=== PATIENT | male | born 1985 | race American Indian/Alaskan Native ===

== ENCOUNTER 2020-11-01 10:02 | Emergency (ER) | payer SELFPAY ==
[2020-11-01 10:21] VITALS: BP 144/94
--- NOTE | 2020-11-01 10:42 | Emergency Department Report ---
ED General Adult HPI - General Chief complaint: Abdominal Pain Stated complaint: STOMACH PAIN Time Seen by Provider: 11/01/20 10:36 Source: patient Mode of arrival: Ambulatory Limitations: No Limitations - History of Present Illness Initial comments: Patient is a 34-year-old male who presents emergency room with complaints of upper abdominal discomfort that exacerbated over the last 2 days. He states that it is worse at night and worse after eating. He states he does have a history of GERD but is not currently on any medications. He states it feels like a burning sensation and he has increased belching. He states that he ate a spicy homemade sauce and that he drank some alcohol socially and he believes that is what set off his symptoms 2 days ago. He denies any nausea, vomiting, diarrhea, fever, hematochezia, hematemesis, melena, urinary symptoms, pain or swelling in the testicles. He denies any medication allergies. Severity scale (0 -10): 8 - Related Data Previous Rx's Medication Instructions Recorded Last Taken Type Famotidine [Pepcid] 40 mg PO QHS #30 tablet 11/01/20 Unknown Rx Simethicone [Gas Relief] 125 mg PO Q6HR PRN #1 bottle 11/01/20 Unknown Rx Sucralfate [Carafate] 1 gm PO ACHS 7 Days #21 tablet 11/01/20 Unknown Rx ED Review of Systems ROS: Stated complaint: STOMACH PAIN Other details as noted in HPI Comment: All other systems reviewed and negative ED Past Medical Hx - Past Medical History Previous Medical History?: No - Surgical History Past Surgical History?: No - Medications Home Medications: Home Medications Medication Instructions Recorded Confirmed Last Taken Type Famotidine [Pepcid] 40 mg PO QHS #30 tablet 11/01/20 Unknown Rx Simethicone [Gas Relief] 125 mg PO Q6HR PRN #1 bottle 11/01/20 Unknown Rx Sucralfate [Carafate] 1 gm PO ACHS 7 Days #21 tablet 11/01/20 Unknown Rx ED Physical Exam - General Limitations: No Limitations General appearance: alert, in no apparent distress - Head Head exam: Present: atraumatic, normocephalic - Eye Eye exam: Present: normal appearance - ENT ENT exam: Present: mucous membranes moist - Respiratory Respiratory exam: Present: normal lung sounds bilaterally. Absent: respiratory distress, wheezes, rales, rhonchi, stridor, chest wall tenderness, accessory muscle use, decreased breath sounds, prolonged expiratory - Cardiovascular Cardiovascular Exam: Present: regular rate, normal rhythm, normal heart sounds. Absent: systolic murmur, diastolic murmur, rubs, gallop - GI/Abdominal GI/Abdominal exam: Present: soft, normal bowel sounds. Absent: distended, tenderness, guarding, rebound, rigid - Neurological Exam Neurological exam: Present: alert, oriented X3 - Psychiatric Psychiatric exam: Present: normal affect, normal mood - Skin Skin exam: Present: warm, dry, intact ED Course Vital Signs 11/01/20 10:20 Temperature 98.2 F Pulse Rate 85 Respiratory 18 Rate Blood Pressure 144/94 [Right] O2 Sat by Pulse 99 Oximetry ED Medical Decision Making - Medical Decision Making Patient is a 34-year-old male who presents emergency room with complaints of upper abdominal discomfort that exacerbated over the last 2 days. He states that it is worse at night and worse after eating. He states he does have a history of GERD but is not currently on any medications. He states it feels like a burning sensation and he has increased belching. He states that he ate a spicy homemade sauce and that he drank some alcohol socially and he believes that is what set off his symptoms 2 days ago. He denies any nausea, vomiting, diarrhea, fever, hematochezia, hematemesis, melena, urinary symptoms, pain or swelling in the testicles. He denies any medication allergies. VSS. No abdominal tenderness on exam, no guarding, no rebound, no rigidity, normal bowel sounds, no peritoneal signs, negative Hinds sign, negative McBurney's point tenderness, negative Hall Dawson's and [place] sign. Symptoms appear most consistent with GERD versus PUD versus gastritis. Patient is tolerating p.o. intake without difficulty. He has no obstructive signs or symptoms. Do not suspect acute emergent intra abdominal pathology at this time. Patient given prescription for Pepcid, Carafate, simethicone. Advised patient Please take medication as prescribed. Increase your water intake. Follow-up with your primary care doctor. Follow-up with a GI doctor. Please follow the diet for acid reflux. Return to emergency room immediately for any new or worsening symptoms including but not limited to worsening pain, vomiting, constant diarrhea, fever, blood in the stool, unable to tolerate by mouth intake, unable to have a bowel movement or pass gas, etc. Critical care attestation.: If time is entered above; I have spent that time in minutes in the direct care of this critically ill patient, excluding procedure time. ED Disposition Clinical Impression: Upper abdominal pain Disposition: DC-01 TO HOME OR SELFCARE Is pt being admited?: No Does the pt Need Aspirin: No Condition: Stable Instructions: Gastritis, Adult, Food Choices for Gastroesophageal Reflux Disease, Adult, Gastroesophageal Reflux Disease, Adult Additional Instructions: Please take medication as prescribed. Increase your water intake. Follow-up with your primary care doctor. Follow-up with a GI doctor. Please follow the diet for acid reflux. Return to emergency room immediately for any new or worsening symptoms including but not limited to worsening pain, vomiting, constant diarrhea, fever, blood in the stool, unable to tolerate by mouth intake, unable to have a bowel movement or pass gas, etc. Prescriptions: Famotidine [Pepcid] 40 mg PO QHS #30 tablet Sucralfate [Carafate] 1 gm PO ACHS 7 Days #21 tablet Simethicone [Gas Relief] 125 mg PO Q6HR PRN #1 bottle PRN Reason: gas Referrals: BETSEY WINCHESTER MD [Staff Physician] - 3-5 Days [facility] [Provider Group] - 3-5 Days [facility] [Outside] - 3-5 Days [facility] [Outside] - 3-5 Days [facility] [Provider Group] - 3-5 Days PRIMARY MD ELAINE [Primary Care Provider] - 3-5 Days Time of Disposition: 10:39 Print Language: SLOVENIAN
== END 2020-11-01 10:51 | disposition home or self-care (01) ==
LOC: ED 10:02
DX: R10.10 Upper abdominal pain, unspecified (principal); Z79.899 Other long term (current) drug therapy
CPT/HCPCS: 99282

== ENCOUNTER 2021-07-27 11:56 | Emergency (ER) | payer BC ==
--- NOTE | 2021-07-27 12:24 | Emergency Department Report ---
ED Lower Extremity HPI - General Stated Complaint: LT KNEE INJURY Time Seen by Provider: 07/27/21 12:23 Source: patient Mode of arrival: Ambulatory Limitations: No Limitations - History of Present Illness Initial Comments: 35 yo comes to ER p standing today and rotating knee "funny." He felt a pop and now has l knee pain Ambulatory to ER no effusion distal limb exam wnl neurovasc intact. MD Complaint: knee injury -: Sudden, hour(s) Injury: Knee: Left Type of Injury: other Place: home Severity: mild Severity scale (0 -10): 3 Improves With: nothing Worsens With: weight bearing Associated Symptoms: snap/pop sensation - Related Data Previous Rx's Medication Instructions Recorded Last Taken Type Famotidine [Pepcid] 40 mg PO QHS #30 tablet 11/01/20 Unknown Rx Simethicone [Gas Relief] 125 mg PO Q6HR PRN #1 bottle 11/01/20 Unknown Rx Sucralfate [Carafate] 1 gm PO ACHS 7 Days #21 tablet 11/01/20 Unknown Rx Allergies Allergy/AdvReac Type Severity Reaction Status Date / Time No Known Allergies Allergy Verified 07/27/21 12:21 ED Review of Systems ROS: Stated complaint: LT KNEE INJURY Other details as noted in HPI Comment: All other systems reviewed and negative ED Past Medical Hx - Past Medical History Previous Medical History?: No - Surgical History Past Surgical History?: No - Family History Family history: no significant - Social History Smoking Status: Never Smoker Substance Use Type: None - Medications Home Medications: Home Medications Medication Instructions Recorded Confirmed Last Taken Type Famotidine [Pepcid] 40 mg PO QHS #30 tablet 11/01/20 Unknown Rx Simethicone [Gas Relief] 125 mg PO Q6HR PRN #1 bottle 11/01/20 Unknown Rx Sucralfate [Carafate] 1 gm PO ACHS 7 Days #21 tablet 11/01/20 Unknown Rx ED Physical Exam - General General appearance: alert, in no apparent distress - Head Head exam: Present: atraumatic, normocephalic - Eye Eye exam: Present: normal appearance - ENT ENT exam: Present: mucous membranes moist - Neck Neck exam: Present: normal inspection - Respiratory Respiratory exam: Present: normal lung sounds bilaterally. Absent: respiratory distress - Cardiovascular Cardiovascular Exam: Present: regular rate, normal rhythm. Absent: systolic murmur, diastolic murmur, rubs, gallop - GI/Abdominal GI/Abdominal exam: Present: soft, normal bowel sounds - Rectal Rectal exam: Present: deferred - Extremities Exam Extremities exam: Present: normal inspection - Back Exam Back exam: Present: normal inspection - Neurological Exam Neurological exam: Present: alert, oriented X3 - Psychiatric Psychiatric exam: Present: normal affect, normal mood - Skin Skin exam: Present: warm, dry, intact, normal color. Absent: rash ED Course Vital Signs 07/27/21 07/27/21 07/27/21 12:22 12:29 12:30 Temperature 98 F 98.1 F Pulse Rate 75 81 Respiratory 16 14 Rate Blood Pressure Blood Pressure 158/102 135/86 [Left] O2 Sat by Pulse 96 98 98 Oximetry 07/27/21 12:31 Temperature 98.1 F Pulse Rate 81 Respiratory 14 Rate Blood Pressure 135/86 Blood Pressure [Left] O2 Sat by Pulse 98 Oximetry ED Lower Extremity MDM - Radiology Data Radiology results: report reviewed, image reviewed nap - Medical Decision Making xray noted Vital Signs 07/27/21 07/27/21 07/27/21 12:22 12:29 12:30 Temperature 98 F 98.1 F Pulse Rate 75 81 Respiratory 16 14 Rate Blood Pressure Blood Pressure 158/102 135/86 [Left] O2 Sat by Pulse 96 98 98 Oximetry 07/27/21 12:31 Temperature 98.1 F Pulse Rate 81 Respiratory 14 Rate Blood Pressure 135/86 Blood Pressure [Left] O2 Sat by Pulse 98 Oximetry educated on RICE treatment sadi/crutches for comfort dc home with dc plan of care including follow up with ortho/RICE and pain management. Pt verbalizes understanding of dc plan of care - Differential Diagnosis ro fx Critical care attestation.: If time is entered above; I have spent that time in minutes in the direct care of this critically ill patient, excluding procedure time. ED Disposition Clinical Impression: Knee pain Disposition: 01 HOME / SELF CARE / HOMELESS Is pt being admited?: No Does the pt Need Aspirin: No Condition: Stable Instructions: Acute Knee Pain, Adult Additional Instructions: rest ice elevate over the counter meds of pain follow up with ortho md next week if pain persists referral below sadi and crutches for comfort only do not use more htan 72 hours- can cause secondary injury Referrals: MUNIR CISSE MD [Staff Physician] - 3-5 Days Forms: Work/School Release Form(ED) Time of Disposition: 13:18
[2021-07-27 12:30] VITALS: BP 135/86
--- NOTE | 2021-07-27 13:21 | XRay Report ---
XR knee 3V LT INDICATION: knee pain. COMPARISON: No relevant prior imaging study available. FINDINGS: No acute skeletal abnormality. No significant soft tissue abnormality. IMPRESSION: 1. No acute findings. Signer Name: Mayur Simmons MD Signed: 07/27/2021 1:16 PM Workstation Name: [id number]
== END 2021-07-27 14:41 | disposition home or self-care (01) ==
LOC: ED 11:56
DX: M25.562 Pain in left knee (principal); X50.1XXA Overexertion from prolonged static or awkward postures, initial encounter; Y93.89 Activity, other specified; Y92.89 Other specified places as the place of occurrence of the external cause; Y99.8 Other external cause status
CPT/HCPCS: 99283

== ENCOUNTER 2021-09-14 09:36 | Emergency (ER) | payer BC ==
[2021-09-14] MEDS ORDERED: COLCHICINE 0.6 MG TAB PO ONE ×2 (10:53→12:00)
[2021-09-14] MEDS ORDERED: IBUPROFEN 800 MG TAB PO ONE (10:53)
[2021-09-14] MEDS ORDERED: HYDROcodone/ACETAMINOPHEN 5-325 MG TAB PO ONE (10:53)
--- NOTE | 2021-09-14 12:04 | Emergency Department Report ---
ED Extremity Problem HPI - General Chief complaint: Extremity Problem,Nontraumatic Stated complaint: GOUT Time Seen by Provider: 09/14/21 10:53 Source: patient, family Mode of arrival: Ambulatory Limitations: No Limitations - History of Present Illness Initial comments: Patient is a 35-year-old F [place] male with a past medical history of gout who is complaining of pain in his right great toe. States pain is been worse over the last 2 days. States is consistent with his gouty arthritis. Pain is estimated 7 out of 10 in severity. Denies fevers chills or direct trauma. Severity scale (0 -10): 8 - Related Data Previous Rx's Medication Instructions Recorded Last Taken Type Famotidine [Pepcid] 40 mg PO QHS #30 tablet 11/01/20 Unknown Rx Simethicone [Gas Relief] 125 mg PO Q6HR PRN #1 bottle 11/01/20 Unknown Rx Sucralfate [Carafate] 1 gm PO ACHS 7 Days #21 tablet 11/01/20 Unknown Rx HYDROcodone/APAP 5-325 [[place] 1 each PO Q6HR PRN #14 tablet 09/14/21 Unknown Rx 5/325] Ketorolac [Toradol] 10 mg PO Q6H PRN #15 tablet 09/14/21 Unknown Rx predniSONE [Deltasone] 50 mg PO QDAY #5 tab 09/14/21 Unknown Rx Allergies Allergy/AdvReac Type Severity Reaction Status Date / Time No Known Allergies Allergy Verified 07/27/21 12:21 ED Review of Systems ROS: Stated complaint: GOUT Other details as noted in HPI Comment: All other systems reviewed and negative ED Past Medical Hx - Social History Smoking Status: Never Smoker Substance Use Type: None - Medications Home Medications: Home Medications Medication Instructions Recorded Confirmed Last Taken Type Famotidine [Pepcid] 40 mg PO QHS #30 tablet 11/01/20 Unknown Rx Simethicone [Gas Relief] 125 mg PO Q6HR PRN #1 bottle 11/01/20 Unknown Rx Sucralfate [Carafate] 1 gm PO ACHS 7 Days #21 tablet 11/01/20 Unknown Rx HYDROcodone/APAP 5-325 [[place] 1 each PO Q6HR PRN #14 tablet 09/14/21 Unknown Rx 5/325] Ketorolac [Toradol] 10 mg PO Q6H PRN #15 tablet 09/14/21 Unknown Rx predniSONE [Deltasone] 50 mg PO QDAY #5 tab 09/14/21 Unknown Rx ED Physical Exam - General Limitations: No Limitations General appearance: alert, in no apparent distress - Head Head exam: Present: atraumatic, normocephalic - Eye Eye exam: Present: normal appearance - ENT ENT exam: Present: mucous membranes moist - Neck Neck exam: Present: normal inspection - Respiratory Respiratory exam: Present: normal lung sounds bilaterally. Absent: respiratory distress - Cardiovascular Cardiovascular Exam: Present: regular rate, normal rhythm. Absent: systolic murmur, diastolic murmur, rubs, gallop - GI/Abdominal GI/Abdominal exam: Present: soft, normal bowel sounds - Rectal Rectal exam: Present: deferred - Extremities Exam Extremities exam: Present: normal inspection, other (Mild swelling to the right great toe without erythema. Full range of motion. Tenderness to palpation.) - Back Exam Back exam: Present: normal inspection - Neurological Exam Neurological exam: Present: alert, oriented X3 - Psychiatric Psychiatric exam: Present: normal affect, normal mood - Skin Skin exam: Present: warm, dry, intact, normal color. Absent: rash ED Course Vital Signs 09/14/21 09/14/21 09:45 11:50 Temperature 98.5 F Pulse Rate 82 64 Respiratory 15 14 Rate Blood Pressure 142/82 Blood Pressure 154/85 [Left] O2 Sat by Pulse 97 98 Oximetry ED Medical Decision Making - Medical Decision Making Patient given a double dose of colchicine and single dose 1 hour later for treatment of gout. Patient be given medication for symptomatic relief and to be stable for discharge. Critical care attestation.: If time is entered above; I have spent that time in minutes in the direct care of this critically ill patient, excluding procedure time. ED Disposition Clinical Impression: Acute gouty arthritis Disposition: 01 HOME / SELF CARE / HOMELESS Is pt being admited?: No Does the pt Need Aspirin: No Condition: Stable Instructions: Low-Purine Eating Plan Referrals: PRIMARY CARE, [Primary Care Provider] - 3-5 Days Time of Disposition: 12:03
[2021-09-14 13:23] VITALS: BP 148/85
== END 2021-09-14 13:23 | disposition home or self-care (01) ==
LOC: ED 09:36
DX: M10.9 Gout, unspecified (principal)
CPT/HCPCS: 99282

== ENCOUNTER 2021-10-04 12:45 | Emergency (ER) | payer BC ==
[2021-10-04] MEDS ORDERED: KETOROLAC 60 MG/2 ML INJ IM ONE (14:30)
--- NOTE | 2021-10-04 14:38 | Emergency Department Report ---
ED Lower Extremity HPI - General Chief Complaint: Extremity Problem,Nontraumatic Stated Complaint: GOUT Source: patient Mode of arrival: Ambulatory Limitations: No Limitations - History of Present Illness Initial Comments: Chief complaint: My toe hurts HPI: Is 35-year-old male with history of gout who presents with right big toe pain rating to the right ankle. Severe pain. Possibly triggered by seafood. Patient has stinging alcohol. No injury. Swelling at the first MTP MD Complaint: other (Right big toe joint pain) -: Gradual, week(s) (two weeks) Injury: Foot: Right Severity: severe Severity scale (0 -10): 10 Improves With: other (Allopurinol) Worsens With: weight bearing, movement Associated Symptoms: swelling - Related Data Previous Rx's Medication Instructions Recorded Last Taken Type Famotidine [Pepcid] 40 mg PO QHS #30 tablet 11/01/20 Unknown Rx Simethicone [Gas Relief] 125 mg PO Q6HR PRN #1 bottle 11/01/20 Unknown Rx Sucralfate [Carafate] 1 gm PO ACHS 7 Days #21 tablet 11/01/20 Unknown Rx HYDROcodone/APAP 5-325 [[place] 1 each PO Q6HR PRN #14 tablet 09/14/21 Unknown Rx 5/325] Ketorolac [Toradol] 10 mg PO Q6H PRN #15 tablet 09/14/21 Unknown Rx predniSONE [Deltasone] 50 mg PO QDAY #5 tab 09/14/21 Unknown Rx Colchicine 0.6 mg PO Q1H #3 tablet 10/04/21 Unknown Rx Naproxen 500 mg PO BID 7 Days #14 tablet 10/04/21 Unknown Rx allopurinoL [Zyloprim] 100 mg PO QDAY 30 Days #52 tablet 10/04/21 Unknown Rx oxyCODONE /ACETAMINOPHEN [Percocet 1 tab PO Q6HR PRN #15 tablet 10/04/21 Unknown Rx 5/325] Allergies Allergy/AdvReac Type Severity Reaction Status Date / Time No Known Allergies Allergy Verified 07/27/21 12:21 ED Review of Systems ROS: Stated complaint: GOUT Other details as noted in HPI Comment: All other systems reviewed and negative Constitutional: denies: chills, fever, malaise Respiratory: denies: cough, shortness of breath Gastrointestinal: denies: abdominal pain, nausea, vomiting ED Past Medical Hx - Past Medical History Previous Medical History?: Yes Additional medical history: Gout - Social History Smoking Status: Never Smoker Substance Use Type: None - Medications Home Medications: Home Medications Medication Instructions Recorded Confirmed Last Taken Type Famotidine [Pepcid] 40 mg PO QHS #30 tablet 11/01/20 Unknown Rx Simethicone [Gas Relief] 125 mg PO Q6HR PRN #1 bottle 11/01/20 Unknown Rx Sucralfate [Carafate] 1 gm PO ACHS 7 Days #21 tablet 11/01/20 Unknown Rx HYDROcodone/APAP 5-325 [[place] 1 each PO Q6HR PRN #14 tablet 09/14/21 Unknown Rx 5/325] Ketorolac [Toradol] 10 mg PO Q6H PRN #15 tablet 09/14/21 Unknown Rx predniSONE [Deltasone] 50 mg PO QDAY #5 tab 09/14/21 Unknown Rx Colchicine 0.6 mg PO Q1H #3 tablet 10/04/21 Unknown Rx Naproxen 500 mg PO BID 7 Days #14 tablet 10/04/21 Unknown Rx allopurinoL [Zyloprim] 100 mg PO QDAY 30 Days #52 tablet 10/04/21 Unknown Rx oxyCODONE /ACETAMINOPHEN [Percocet 1 tab PO Q6HR PRN #15 tablet 10/04/21 Unknown Rx 5/325] ED Physical Exam - General Limitations: No Limitations General appearance: alert, in no apparent distress - Head Head exam: Present: atraumatic, normocephalic - ENT ENT exam: Present: mucous membranes moist - Neck Neck exam: Present: normal inspection, full ROM - Respiratory Respiratory exam: Absent: respiratory distress - Extremities Exam Extremities exam: Present: other (Right first MTP: Edematous tender foot otherwise normal no ankle swelling) - Neurological Exam Neurological exam: Present: alert, oriented X3, other (Walking with a limp) - Psychiatric Psychiatric exam: Present: normal affect, normal mood - Skin Skin exam: Present: warm, dry, intact, normal color ED Course Vital Signs 10/04/21 12:49 Temperature 97.7 F Pulse Rate 91 H Respiratory 20 Rate Blood Pressure 169/109 [Right] O2 Sat by Pulse 99 Oximetry ED Lower Extremity MDM - Medical Decision Making Acute gout exacerbation: Prescribed colchicine, naproxen, Percocet allopurinol. Referred to outpatient medicine physician - Differential Diagnosis Septic joint, Critical care attestation.: If time is entered above; I have spent that time in minutes in the direct care of this critically ill patient, excluding procedure time. ED Disposition Clinical Impression: Exacerbation of gout Disposition: 01 HOME / SELF CARE / HOMELESS Is pt being admited?: No Does the pt Need Aspirin: No Condition: Stable Instructions: Low-Purine Eating Plan Prescriptions: Colchicine 0.6 mg PO Q1H #3 tablet Naproxen 500 mg PO BID 7 Days #14 tablet oxyCODONE /ACETAMINOPHEN [Percocet 5/325] 1 tab PO Q6HR PRN #15 tablet PRN Reason: Pain allopurinoL [Zyloprim] 100 mg PO QDAY 30 Days #52 tablet Referrals: BETSEY WINCHESTER MD [Staff Physician] - 3-5 Days Forms: Work/School Release Form(ED)
[2021-10-04 15:45] VITALS: BP 156/94
== END 2021-10-04 15:45 | disposition home or self-care (01) ==
LOC: ED 12:45
DX: M10.9 Gout, unspecified (principal)
CPT/HCPCS: 96372; 99282; J1885